=== PATIENT | female | born 2000 | race Caucasian/White ===

== ENCOUNTER 2022-06-05 10:37 | Emergency (ER) | payer MEDICAID, SELFPAY ==
[2022-06-05 10:44] VITALS: BP 118/72; PULSE 93; RESP 23; TEMP 36.5; O2SAT 98
[2022-06-05 11:04] VITALS: BP 114/62; PULSE 84; PULSE 93; RESP 15
[2022-06-05 11:05] VITALS: PULSE 89; RESP 21
[2022-06-05 11:10] VITALS: PULSE 96; RESP 17
[2022-06-05] MEDS: diphenhydrAMINE 25 MG CAP PO (11:10)
[2022-06-05 11:11] VITALS: BP 114/62; PULSE 92; RESP 12; O2SAT 98
[2022-06-05] MEDS: Dexamethasone 10 MG/ML VIAL PO (11:16)
--- NOTE | 2022-06-05 13:54 | ED.GENADUL_ITS ---
Discharge Plan Disposition Patient Disposition: HOME Condition: Stable Discharge Details Clinical Impression: Allergic reaction Primary Care Provider: Unknown,Unknown ED Provider: Mary Pena Home Meds and New Rx's Prescriptions: No Action No Known Home Meds Discharge Instructions Instructions: General Allergic Reaction (ED) Additional Instructions: Take Benadryl every 6-8 hours throughout the day You have been given a dose of steroids which will also likely 3 days Should you have new or worsening symptoms, I recommend you return immediately to the emergency department for reassessment Stay away from [facility] and recommend outpatient allergy testing with your doctor Medical Decision Making Patient appears well, airway patent Vitals are stable, asymptomatic Erythematous of Decadron and Benadryl Return precautions discussed and patient expressed understanding Medical Records Medical records reviewed: Yes I reviewed the patient's medical records. Lab Data Lab results reviewed: Yes I reviewed the patient's lab results. HPI General Date/Time Provider Initiated Documentation: 06/05/22 10:54 . HPI Narrative: this 22-year-old female presents with reports of acute onset of difficulty swallowing and itchy throat after eating in August. Denies any additional complaints at this time. Denies prior history of similar symptoms associated with [place] in the past. States she does have a known allergy which is not anaphylaxis to kiwi. Denies prior need for epinephrine and states that her s ymptoms have not completely resolved. The last for approximately 15 minutes. Did not take any medications Related Data Home Medications Medication Instructions Recorded Confirmed Unknown [No Known Home Meds] 06/05/22 06/05/22 Allergies Allergy/AdvReac Type Severity Reaction Status Date / Time [place] Allergy Severe Itching Unverified 06/05/22 10:49 Penicillins Allergy Severe Skin Rash Unverified 06/05/22 10:49 General Stated Complaint: Allergic EDMOND: 2 Review of Systems All systems reviewed & are unremarkable except as noted in HPI and below PFSH All Active Problems (Updated 06/05/22 @ 10:56 by TAYLER Aquino) Allergic reaction (Acute) Social History Smoking/Tobacco Use Status: Current every day Tobacco Type: cigarettes Smoking risk assessment performed?: Yes Alcohol Intake: current Alcohol Intake frequency: a few times a month Drug use: Occasionally Substance use type: marijuana Do you feel safe at home: Yes Do you feel safe in your relationship?: Yes Exam Const General: cooperative, comfortable and no acute distress HENMT Mouth: oral mucosae normal Other: uvula midline , oropharynx patent Eyes Pupils: PERRL Neck Other: no stridor Resp Effort & Inspection: normal respiratory effort Auscultation: clear to auscultation bilaterally Cardio Rate: regular rate Course Vital Signs Vital signs: Vital Signs Temperature 36.5 C 06/05/22 10:44 Pulse 93 H 06/05/22 10:44 Respiratory Rate 23 06/05/22 10:44 Blood Pressure 118/72 06/05/22 10:44 Pulse Oximetry 98 06/05/22 10:44 Temperature 36.5 C 06/05/22 10:44 Temperature Source Temporal Artery Scan 06/05/22 10:44 Pulse 92 H 06/05/22 11:11 Pulse 96 H 06/05/22 11:10 Respiratory Rate 12 06/05/22 11:11 Respiratory Effort Short of Breath 06/05/22 10:47 Respiratory Pattern Normal 06/05/22 10:47 Blood Pressure 114/62 06/05/22 11:11 Blood Pressure Mean 74 06/05/22 11:04 Blood Pressure Position Sitting 06/05/22 10:44 Pulse Oximetry 98 06/05/22 11:11 Oxygen Delivery Method Room Air 06/05/22 10:44 Oxygen Flow Rate 0 06/05/22 10:44 Pain Level 0 06/05/22 11:16 PAWSS Have you Been Recently Intoxicated or Drunk Within the Last 30 days?: No Have you Ever Experienced Previous Episodes of Alcohol Withdrawal?: No Have you ever Experienced Withdrawal Seizures?: No Have you ever Experienced Delirium Tremens(DT)s?: No Have you ever undergone Alcohol Rehabilitation Treatment (i.e, inpt ot outpatient treatment programs)?: No Have you ever Experienced Blackouts?: No Have you ever Combined Alcohol with other Downers within the last 90 days?: No Have you ever Combined Alcohol with any other Substance of Abuse during the last 90 days?: No Result: 0
== END 2022-06-05 11:15 | disposition home or self-care (01) ==
PROVIDERS: Emergency Provider Physician Assistant
DX: T78.1XXA Other adverse food reactions, not elsewhere classified, initial encounter (principal); R13.10 Dysphagia, unspecified; J02.9 Acute pharyngitis, unspecified
CPT/HCPCS: 99283; 99284; J1100